=== PATIENT | female | born 1975 | race Caucasian/White ===

== ENCOUNTER → 2020-08-09 14:28 | Outpatient (CLI) | payer OTHER, SELFPAY ==
[2020-08-09 16:32] LABS: COVID19 -Nasal RAPID Negative (Negative)
== END ==
PROVIDERS: Family Provider Obstetrics & Gynecology; PCP Registered Nurse; Visit Provider Student in an Organized Health Care Education/Training Program
DX: Z20.822 Contact with and (suspected) exposure to COVID-19 (principal)
CPT/HCPCS: 87635

== ENCOUNTER 2020-08-11 10:23 | Day surgery (SDC) | payer OTHER, SELFPAY ==
--- NOTE | 2020-08-11 | PATH_ITS ---
[facility] Accession Number: [id number] . 01 Material submitted: . PART A: colon - RIGHT COLON PART B: colon - LEFT COLON . 01 Clinical history: . A-B: R/O MICROSCOPIC COLITIS . 02 Diagnosis: A. - B. Right Colon, Left Colon, Biopsies: Lymphocytic colitis. Negative for granulomas, dysplasia, and malignancy. I 08/17/2020 1823 Local . 02 Electronically signed: . Ashley Diaz MD, Pathologist NPI- [id number] . 01 Gross description: . Part A: RIGHT COLON: Received in formalin are multiple fragment(s) of aleman, soft tissue measuring 0.1 x 0.1 x 0.1 cm to 0.3 x 0.2 x 0.2 cm submitted entirely in 1 cassette(s) Part B: LEFT COLON : Received in formalin are multiple fragment(s) of aleman, soft tissue measuring 0.1 x 0.1 x 0.1 cm to 0.3 x 0.3 x 0.2 cm submitted entirely in 1 cassette(s) /KELI 08/12/2020 1835 Local . 02 Pathologist provided ICD-10: K52.89 . 02 CPT . 840531, [id number] Performed at: 01 [facility] [address], [place], [place] [id number] MD Nitin Valentine MD Phone: [phone] Performed at: 02 [facility] [address] [place], [place] [id number] MD Ashley Diaz MD Phone: [phone]
--- NOTE | 2020-08-11 08:11 | P.HP_ITS ---
History of Present Illness History of Present Illness Date Patient Seen: 08/11/20 Chief complaint: SDC Narrative: 44-year-old female seen at our office 07/07/2020 due to diarrhea here for further evaluation Patient History Surgical History (Updated 08/21/17 @ 06:12 by Conversion Provider) History of third molar tooth extraction Status post tonsillectomy and adenoidectomy Meds Home Medications and Allergies Home Medications Medication Instructions Recorded Confirmed Type duloxetine 60 mg PO QDAY #0 06/14/16 08/11/20 History ondansetron 4 mg SUBLINGUAL Q6HP PRN #0 06/14/16 08/11/20 History rizatriptan [Maxalt-[employer]] 10 mg PO PRN PRN #0 06/14/16 08/11/20 History tramadol 50 mg PO #0 06/14/16 History medroxyprogesterone 5 mg PO QDAY #30 tab 07/03/17 Rx Allergies Allergy/AdvReac Type Severity Reaction Status Date / Time No Known Allergies Allergy Uncoded 08/01/17 12:41 Exam Narrative Exam Narrative: General: Patient is well developed, not in apparent distress Cardiovascular: Regular rate and rhythm, no murmurs, rubs, or gallops; no evidence of edema; no palpable abdominal aortic aneurysm Gastrointestinal: Normoactive bowel sounds, soft, nontender, nondistended, no rebound tenderness, no hepatosplenomegaly, no evidence of hernia Assessment & Plan Assessment & Plan narrative: 44-year-old female here for further evaluation diarrhea; plan is for colonoscopy with biopsies for microscopic colitis Regarding the procedure(s), the risks and potential complications, benefits, and alternatives (including not doing the procedure) were discussed with the patient. The risks include but are not limited to bleeding, splenic injury, infection, perforation which may require surgical intervention, missed lesions, and adverse reactions to sedative medicines. After a question and answer period, the patient agreed to proceed with the procedure(s) and gives informed consent.
[2020-08-11 10:47] VITALS: BP 124/79; PULSE 89; RESP 16; TEMP 37.3; O2SAT 99; BMI 33.3
[2020-08-11] MEDS: SODIUM CHLORIDE 0.9% 1,000 ML 70 ML IV (10:56)
--- NOTE | 2020-08-11 11:05 | PM.OP.ENDO ---
Operative Date/Time/Diagnoses Date of procedure: 08/11/20 Procedure Notes Procedure in detail: Surgeon: Ander Castañeda MD Procedure: Colonoscopy with biopsies Preoperative diagnosis: Diarrhea Postoperative diagnosis: Normal colonic mucosa and visualized terminal ileum; hypertrophied anal papillae Medications: Conscious sedation using 4 mg IV of Midazolam and 100 mcg IV of Fentanyl Preanesthesia Assessment An H and P was performed/updated and the Px?s ASA class is 2. The procedure was discussed in detail with the patient. The potential risks and complications including infection, bleeding, missed lesions, perforation, need for surgery in case of perforation, prolonged hospital stay, and were explained. A brief question and answer period was allotted and once all questions were answered, informed consent was obtained. The patient was brought back to the procedure room and placed on standard monitoring. The patient?s vital signs were monitored continuously throughout the entire procedure. Prior to starting, a timeout was performed to confirm the patient?s identity, allergies, medications, and procedure. Procedure in detail The patient was placed in left lateral decubitus position and once adequate sedation was obtained a SANDRA was performed. The digital rectal examination did not reveal any palpable lesions. The tip of the colonoscope was placed in the anal canal and advanced without difficulty all the way to the cecum which was identified by the appendiceal orifice and the ileocecal valve. The terminal ileum was intubated to a distance of 10 cm from the ileocecal valve and the mucosa appeared normal. The colonoscope was then brought back to the cecum and careful examination of all montalvo of the colon was performed with irrigation of any residual stool. The colonic mucosa appeared normal throughout the entire colon. Biopsies were taken from the right and left colon to check for microscopic colitis. There was minimal bleeding Retroflexion was performed in the rectum which revealed hypertrophied anal papillae The patient tolerated the procedure well and will be brought back to the recovery area to be discharged once criteria are met. The prep was judged to be good and adequate to identify polyps less than 5 mm. The withdrawal time was 9 minutes. The total physician intraservice time was 15 with. Complications There were no complications and estimated blood loss was minimal. Recommendations: Resume previous diet Continue outPx medications Follow up pathology results Repeat colonoscopy in 10 years for colon cancer screening Call our office ([facility]) to schedule follow-up with Lashell Barnes, at the next available appointment An emergency contact number was given to the patient for any complications related to the procedure
[2020-08-11] MEDS: fentaNYL 250 MCG/5 ML INJ IV (11:32)
[2020-08-11] MEDS: MIDAZOLAM 5 MG/5 ML VIAL IV (11:33)
[2020-08-11 11:50] VITALS: BP 127/81; PULSE 80; RESP 15; TEMP 36.6; O2SAT 100
[2020-08-11 11:55] VITALS: BP 130/79; PULSE 79; RESP 15; O2SAT 100
[2020-08-11 12:00] VITALS: BP 134/85; PULSE 68; RESP 15; O2SAT 100
[2020-08-11 12:05] VITALS: BP 130/77; PULSE 72; RESP 18; TEMP 36.1; O2SAT 100
[2020-08-11 12:16] VITALS: BP 121/80; PULSE 62; RESP 14; TEMP 36.4; O2SAT 100
== END 2020-08-11 12:26 | disposition home or self-care (01) ==
PROVIDERS: Family Provider Obstetrics & Gynecology; PCP Registered Nurse; Referring Provider Internal Medicine Gastroenterology; Visit Provider Internal Medicine Gastroenterology
PROC: 0DJD8ZZ Inspection of Lower Intestinal Tract, Via Natural or Artificial Opening Endoscopic (ICD-10-PCS; CPT 45378; principal; 2020-08-11 11:30)
DX: K52.832 Lymphocytic colitis (principal); K64.4 Residual hemorrhoidal skin tags
CPT/HCPCS: 45380; J2250; J3010